=== PATIENT | male | born 1945 ===

== ENCOUNTER 2022-11-13 06:30 | Day surgery (SDC) | payer OTHER | END 2022-11-13 10:55 | disposition home or self-care (01) | LOC: AMB-ENDOS 06:30 | PROVIDERS: ATTEND Surgery | DX: D12.2 Benign neoplasm of ascending colon (principal); K57.30 Diverticulosis of large intestine without perforation or abscess without bleeding; R19.4 Change in bowel habit; Z20.822 Contact with and (suspected) exposure to COVID-19 ==